=== PATIENT | female | born 1975 | race Native Hawaiian/Other Pacific Islander ===

== ENCOUNTER 2022-06-16 22:00 | Emergency (ER) | payer OTHER ==
[~2022-06-16] VITALS: Ht 152.4 cm; Wt 42.2 kg
[2022-06-16 22:00] VITALS: TEMP 98.1
[~2022-06-16 22:00] MED LIST: 904272561 PO; DIFLUCAN50 MG PO; NYSTATIN100000 UNI PO
[2022-06-16 23:05] LABS: PLATELET COUNT 268 K/uL (152-353)
[2022-06-16 23:14] LABS: POTASSIUM 3.4 mmol/L (3.6-5.2)
[2022-06-17 02:00] VITALS: BP 146/86
[2022-06-17] MEDS ORDERED: FLUOXETINE20 MG PO (09:23)
[2022-06-17] MEDS ORDERED: PANTOPRAZOLE 40MG TA PO (09:25)
[2022-06-17] MEDS ORDERED: BOOST PO (09:27)
[2022-06-17] MEDS ORDERED: BUSP15TAB2 PO (09:28)
[2022-06-17] MEDS ORDERED: ISENTRESS400 MG PO (09:29)
[2022-06-17] MEDS ORDERED: ZIPR20CA PO (09:30)
[2022-06-17] MEDS ORDERED: MIDO5TAB PO (09:31)
[2022-06-17] MEDS ORDERED: TYLENOL325 MG PO (09:33)
[2022-06-17] MEDS ORDERED: GERI-TUSSI100 MG/51 PO (09:39)
[2022-06-17] MEDS ORDERED: LEVALBUTER1.25 MG/3 INH (09:40)
[2022-06-17] MEDS ORDERED: O2 (09:41)
[2022-06-17] MEDS ORDERED: TRAMADOL HYDROC50 MG PO (09:41)
== END 2022-06-17 02:00 | disposition still patient (30) ==
LOC: ED 22:00
PROVIDERS: Emergency Medicine
DX: F25.8 Other schizoaffective disorders (principal); R45.1 Restlessness and agitation; E87.1 Hypo-osmolality and hyponatremia; U07.1 COVID-19; B20 Human immunodeficiency virus [HIV] disease; Z04.6 Encounter for general psychiatric examination, requested by authority
CPT/HCPCS: 36415; 80053; 81002; 85027; 87635; 93005; 99283; U0003